=== PATIENT | female | born 1940 | race Caucasian/White ===

== ENCOUNTER 2017-04-11 08:00 | Outpatient (CLI) | payer MEDICARE | END 2017-04-11 08:01 | disposition home or self-care (01) | LOC: BICMAMMO 08:00 | PROVIDERS: ATTEND Family Medicine | DX: Z12.31 Encounter for screening mammogram for malignant neoplasm of breast (principal) | CPT/HCPCS: 77063 ==

== ENCOUNTER 2018-01-17 11:06 | Emergency (ER) | payer MEDICARE ==
[2018-01-17 11:45] LABS: #Basophils 0.1 thou/uL (0.0-0.2); #Lymphocytes 1.1 thou/uL (1.20-3.40); #Monocytes 0.8 thou/uL (0.11-0.59); #Neutrophils 4.4 thou/uL (1.40-6.50); %Eosinophils 0.7 % (0.0-10.0); %Lymphocytes 17.3 % (21.0-51.0); Hemoglobin 14.9 g/dL (12.0-16.0); Mean Corpuscular HGB CONC 33.8 g/dL (32.0-36.0); Mean Corpuscular Hemoglobin 31.7 pg (27.0-31.0); Mean Corpuscular Volume 93.6 fL (78.0-98.0); Mean Platelet Volume 7.4 fL (7.4-10.4); Platelet Count 231 thou/uL (130-400); RBC Distribution Width 11.3 % (11.5-14.5); Red Blood Cell (RBC) Count 4.69 mill/uL (4.20-5.40); White Blood Cell (WBC) Count 6.4 thou/uL (4.8-10.8)
--- NOTE | 2018-01-17 12:00 | RAD ---
CHEST 1 VIEW: HISTORY: Cough. Dyspnea. COMPARISON: 11/12/13. FINDINGS: Normal cardiac silhouette. The pulmonary vessels and hilum are normal. Costophrenic angles are calvin r. No mass. No consolidation. Lungs are hyperinflated. No pneumothorax or osseous abnormalities. IMPRESSION: No acute cardiopulmonary process. POS: [facility]
[2018-01-17 12:02] LABS: ALT (SGPT) 14 U/L (8-55); AST (SGOT) 26 U/L (5-34); Albumin 4.2 g/dL (3.4-4.8); Alkaline Phosphatase 79 U/L (40-150); Anion Gap 12 mmol/L (10-20); BUN (Urea Nitrogen) 15 mg/dL (9.8-20.1); Bilirubin, Total 0.4 mg/dL (0.2-1.2); Calc. Creatinine Clearance 0 mL/min (70-130); Calcium 9.3 mg/dL (7.8-10.44); Carbon Dioxide 26 mmol/L (23-31); Chloride 100 mmol/L (98-107); Estimated GFR-MDRD 46; Glucose 130 mg/dL (83-110); Potassium 3.7 mmol/L (3.5-5.1); Protein, Total 8.2 g/dL (6.0-8.3); Sodium 134 mmol/L (136-145)
[2018-01-17] MEDS ORDERED: methylPREDNISolone Sod Succ/PF 125 MG/2 ML VIAL ONE (13:01)
[2018-01-17] MEDS ORDERED: Albuterol Sulfate 2.5 mg/0.5 ml Neb ONE (13:01)
[2018-01-17] MEDS ORDERED: Magnesium Sulfate 2 GM/100 ML BAG ONE (13:01)
[2018-01-17] MEDS ORDERED: Ondansetron ODT 8 MG TAB ONE (13:17)
[2018-01-17] MEDS ORDERED: Dicyclomine 20 MG TAB ONE (13:17)
== END 2018-01-17 15:56 | disposition home or self-care (01) ==
LOC: ERS 11:06
DX: J44.1 Chronic obstructive pulmonary disease with (acute) exacerbation (principal); I10 Essential (primary) hypertension; F17.210 Nicotine dependence, cigarettes, uncomplicated; Z79.899 Other long term (current) drug therapy
CPT/HCPCS: 36415; 71045; 80053; 83880; 85025; 87804; 96365; 96375; J2930; J3475; J7611; J7620

== ENCOUNTER 2018-08-03 21:27 | Emergency (ER) | payer MEDICARE ==
[2018-08-03 22:02] LABS: #Basophils 0.1 thou/uL (0.0-0.2); #Eosinphils 0.2 thou/uL (0.0-0.7); #Lymphocytes 1.8 thou/uL (1.20-3.40); #Monocytes 0.8 thou/uL (0.11-0.59); #Neutrophils 11.5 thou/uL (1.40-6.50); %Basophils 0.6 % (0.0-1.0); %Eosinophils 1.3 % (0.0-10.0); %Lymphocytes 12.4 % (21.0-51.0); %Monocytes 5.3 % (0.0-10.0); %Neutrophils 80.4 % (42.0-75.0); Hemoglobin 14.5 g/dL (12.0-16.0); Mean Corpuscular HGB CONC 32.6 g/dL (32.0-36.0); Mean Corpuscular Hemoglobin 30.7 pg (27.0-31.0); Mean Corpuscular Volume 94.3 fL (78.0-98.0); Mean Platelet Volume 7.3 fL (7.4-10.4); Platelet Count 288 thou/uL (130-400); RBC Distribution Width 11.8 % (11.5-14.5); White Blood Cell (WBC) Count 14.3 thou/uL (4.8-10.8)
--- NOTE | 2018-08-03 22:02 | RAD ---
FPortable chest: HISTORY: Chest pain COMPARISON: none FINDINGS: Lung peterson are clear. Heart and mediastinum appear unremarkable. Vascularity is normal. Visualized osseous structures unremarkable. IMPRESSION: No acute finding
[2018-08-03 22:26] LABS: ALT (SGPT) 13 U/L (8-55); AST (SGOT) 19 U/L (5-34); Albumin 4.5 g/dL (3.4-4.8); Alkaline Phosphatase 99 U/L (40-150); Anion Gap 13 mmol/L (10-20); BUN (Urea Nitrogen) 14 mg/dL (9.8-20.1); Bilirubin, Total 0.4 mg/dL (0.2-1.2); CK (CPK) 205 U/L (29-168); Calc. Creatinine Clearance 0 mL/min (70-130); Calcium 9.7 mg/dL (7.8-10.44); Carbon Dioxide 27 mmol/L (23-31); Chloride 103 mmol/L (98-107); Estimated GFR-MDRD 50; Globulin 3.8 g/dL (2.4-3.5); Glucose 123 mg/dL (83-110); Potassium 3.9 mmol/L (3.5-5.1); Protein, Total 8.3 g/dL (6.0-8.3); Sodium 139 mmol/L (136-145)
[2018-08-04] MEDS ORDERED: methylPREDNISolone Sod Succ/PF 125 MG/2 ML VIAL ONE (00:46)
--- NOTE | 2018-08-04 08:50 | CT ---
PRELIMINARY REPORT/[facility]/EMERGENCY AFTER HOURS PROCEDURE: EXAM: CT Angiography Chest With Contrast EXAM DATE/TIME: 08/04/2018 2:10 AM CLINICAL HISTORY: 77 years old, female; Signs and symptoms; Dyspnea; Patient HX: 77 y/o f, with h/o copd, presents to e d C/O cough, with green sputum. PT notes associated soreness in throat, chest tightness. Denies fever , chills, n/v, vision changes, rhinorrhea, GOMEZ, myalgias, urinary symptoms TECHNIQUE: Imaging protocol: Axial computed tomographic angiography images of the chest with intravenous contras t using CT angiography protocol. 3D rendering: MIP reconstructed images were created and reviewed. COMPARISON: No relevant prior studies available. FINDINGS: Pulmonary arteries: There is no evidence of peripheral filling defects within the pulmonary arterial circulation to suggest pulmonary embolism. Aorta: There is no evidence of aortic dissection, leak, rupture, or other complications. The vasculat ure demonstrates diffuse moderate atherosclerotic calcification. Thyroid: There is indeterminate left thyroid heterogeneity/hypodense nodularity possibly from small g oiter measuring at least 1.8 cm. Lungs: Moderate centrilobular emphysematous changes are present. Pleural space: Normal. No pneumothorax. No pleural effusion. Heart: Normal. No cardiomegaly. No pericardial effusion. Lymph nodes: Unremarkable. No enlarged lymph nodes. Bones/joints: Unremarkable. No acute fracture. Soft tissues: Unremarkable. IMPRESSION: 1. There is no CT evidence of acute pulmonary embolism. 2. Moderate centrilobular emphysematous changes are present. 3. There is indeterminate left thyroid heterogeneity/hypodense nodularity possibly from small goiter measuring at least 1.8 cm. This can be further evaluated with thyroid ultrasound if clinically warran lisandro. Thank you for allowing us to participate in the care of your patient. Dictated and Authenticated by: Weston Stack MD 08/04/2018 2:47 AM Central Time ([place] & [place]) FINAL REPORT EMERGENCY AFTER HOURS CT ANGIO CHEST PERFORMED WITH IV CONTRAST ENHANCEMENT WITH 3D RECONSTRUCTIONS: Date: 08/03/18 HISTORY: Dyspnea. History of COPD. Has cough with green sputum. Chest tightness. FINDINGS: The lungs show emphysematous-type change with changes of centrilobular emphysema. No infiltrative pro cess or pulmonary nodules. No significant mediastinal or hilar adenopathy. Thoracic aorta is normal in caliber. There is fairly good pulmonary artery opacification. Smaller peripheral emboli cannot be excluded. I see no CT evidence for pulmonary embolus. Visualized liver parenchyma shows no focal findings. Gallbladder has been removed. Right and left adr enal glands are normal. Incidental note is made of a heterogeneous thyroid with what appears to be a left lobe thyroid nodule . Ultrasound would be recommended for further evaluation. IMPRESSION: 1. Emphysematous lung change. 2. No CT evidence for pulmonary embolus. 3. Left lobe thyroid nodule. Further evaluation with ultrasound would be recommended. This report is in agreement with the preliminary report issued by [facility]. POS: [facility]
== END 2018-08-04 03:41 | disposition home or self-care (01) ==
LOC: ERS 21:27
DX: J44.1 Chronic obstructive pulmonary disease with (acute) exacerbation (principal); E05.90 Thyrotoxicosis, unspecified without thyrotoxic crisis or storm; I10 Essential (primary) hypertension; F17.210 Nicotine dependence, cigarettes, uncomplicated; Z79.51 Long term (current) use of inhaled steroids; Z79.899 Other long term (current) drug therapy
CPT/HCPCS: 36415; 71045; 71275; 80053; 82550; 84484; 85025; 85379; 93005; 94640; 94760; 96374; J2930; J7620

== ENCOUNTER 2018-09-02 08:36 | Outpatient (CLI) | payer MEDICARE ==
--- NOTE | 2018-09-02 11:18 | ULT ---
THYROID ULTRASOUND: Date: 09/02/18 HISTORY: Hyperthyroidism. Parathyroidism. FINDINGS: Real-time imaging of the right and left lobes of the thyroid gland were performed. The right lobe radha sures 1.8 x 1.8 x 4.7 cm. The left lobe measures 1.9 x 2.7 x 5.8 cm. There are at least two larger le ft lobe thyroid nodules, one measuring 1.5 cm and the other approximately 2.3 cm in size. Both lesion s are solid without any significant cystic component. Isoechoic to surrounding parenchyma ill-defined margins. No evidence of any microcalcifications. IMPRESSION: Two dominant left lobe thyroid nodules, the larger of which approaches 2.5 cm in average dimension in the lower pole of the left lobe. These would correspond to TI-RADS 3 lesions. The larger nodule, whi ch is close to averaging 2.5 cm in size, the general recommendation would be fine needle aspiration o f this nodule. POS: [facility]
== END 2018-09-02 08:37 | disposition home or self-care (01) ==
LOC: BICULT 08:36
PROVIDERS: ATTEND Otolaryngology Otolaryngic Allergy
DX: E21.0 Primary hyperparathyroidism (principal); E04.1 Nontoxic single thyroid nodule; J38.7 Other diseases of larynx; E04.2 Nontoxic multinodular goiter
CPT/HCPCS: 76536

== ENCOUNTER 2018-09-19 10:57 | Outpatient (CLI) | payer MEDICARE ==
--- NOTE | 2018-09-19 11:17 | MMO ---
Bilateral MAMMO Bilat Screen [facility]. CLINICAL HISTORY: Patient is 78 years old and is seen for screening. The patient has no family history of breast cancer. The patient has no personal history of cancer. VIEWS: The views performed were: bilateral craniocaudal with tomosynthesis and bilateral mediolateral oblique with tomosynthesis. FILMS COMPARED: The present examination has been compared to prior imaging studies performed at [facility] on 04/11/2017, and at [facility] on 05/14/2014, 05/19/2014 and 02/17/2016. MAMMOGRAM FINDINGS: The breasts are almost entirely fat. There are stable benign appearing calcifications seen in both breasts. There are no suspicious masses, suspicious calcifications, or new areas of architectural distortion. IMPRESSION: THERE IS NO MAMMOGRAPHIC EVIDENCE OF MALIGNANCY. A ROUTINE FOLLOW-UP MAMMOGRAM IN 1 YEAR IS RECOMMENDED. THE RESULTS OF THIS EXAM WERE SENT TO THE PATIENT. ACR BI-RADS Category 2 - Benign finding MAMMOGRAPHY NOTE: 1. A negative mammogram report should not delay a biopsy if a dominant of clinically suspicious mass is present. 2. Approximately 10% to 15% of breast cancers are not detected by mammography. 3. Adenosis and dense breasts may obscure an underlying neoplasm.
== END 2018-09-19 10:58 | disposition home or self-care (01) ==
LOC: BICMAMMO 10:57
PROVIDERS: ATTEND Family Medicine
DX: Z12.31 Encounter for screening mammogram for malignant neoplasm of breast (principal)
CPT/HCPCS: 77063; 77067

== ENCOUNTER 2019-03-20 08:36 | Outpatient (CLI) | payer MEDICARE ==
--- NOTE | 2019-03-20 09:13 | ULT ---
THYROID ULTRASOUND: COMPARISON: 09/02/2018. HISTORY: Follow-up left thyroid lobe nodules. FINDINGS: Thyroid isthmus measures 0.35 cm. Right thyroid lobe measures 4.9 x 1.7 x 2.0 cm. Left thyroid lobe measures 5.3 x 1.9 x 3.0 cm. Left thyroid lobe: Redemonstration of 2 separate solid nodules. There is a 1.7 x 1.4 x 1.5 cm nodule in the mid left thyroid lobe. Previously, this nodule measured 1.3 x 1.5 x 1.4 cm. There is a second larger solid nodule in the lower pole left thyroid lobe measuring 2.3 x 2.3 x 2.0 cm. Previous ly, this nodule measured 2.2 x 2.7 x 2.0 cm. Both nodules are essentially stable. IMPRESSION: TIRADS calculator score: TR 4. Moderately suspicious. Fine-needle aspiration is recommended given the size of the larger of the 2 solid lesions in the lower pole left thyroid lobe. Transcribed Date/Time: 03/20/2019 9:23 AM
== END 2019-03-20 08:37 | disposition home or self-care (01) ==
LOC: BICULT 08:36
PROVIDERS: ATTEND Otolaryngology Otolaryngic Allergy
DX: E04.1 Nontoxic single thyroid nodule (principal)
CPT/HCPCS: 76536

== ENCOUNTER 2019-11-27 11:20 | Outpatient (CLI) | payer MEDICARE ==
--- NOTE | 2019-11-27 13:26 | MMO ---
Bilateral MAMMO Bilat Screen [facility]. CLINICAL HISTORY: Patient is 79 years old and is seen for screening. The patient has no family history of breast cancer. The patient has no personal history of cancer. The patient has a history of right cyst aspiration in 1964. VIEWS: The views performed were: bilateral craniocaudal with tomosynthesis and bilateral mediolateral oblique with tomosynthesis. FILMS COMPARED: The present examination has been compared to prior imaging studies performed at [facility] on 04/11/2017 and 09/19/2018, and at [facility] on 05/19/2014 and 02/17/2016. This study has been interpreted with the assistance of computer-aided detection. MAMMOGRAM FINDINGS: The breasts are almost entirely fat. Benign calcifications are noted bilaterally. There are no suspicious masses, suspicious calcifications, or new areas of architectural distortion. IMPRESSION: THERE IS NO MAMMOGRAPHIC EVIDENCE OF MALIGNANCY. A ROUTINE FOLLOW-UP MAMMOGRAM IN 1 YEAR IS RECOMMENDED. THE RESULTS OF THIS EXAM WERE SENT TO THE PATIENT. ACR BI-RADS Category 2 - Benign finding MAMMOGRAPHY NOTE: 1. A negative mammogram report should not delay a biopsy if a dominant of clinically suspicious mass is present. 2. Approximately 10% to 15% of breast cancers are not detected by mammography. 3. Adenosis and dense breasts may obscure an underlying neoplasm. Reported by: TAB ROTHMAN MD Electonically Signed: [id number]
== END 2019-11-27 11:21 | disposition home or self-care (01) ==
LOC: BICMAMMO 11:20
PROVIDERS: ATTEND Family Medicine
DX: Z12.31 Encounter for screening mammogram for malignant neoplasm of breast (principal); Z98.890 Other specified postprocedural states
CPT/HCPCS: 77063; 77067

== ENCOUNTER 2020-07-01 10:28 | Outpatient (CLI) | payer MEDICARE ==
--- NOTE | 2020-07-01 13:23 | ULT ---
Thyroid ultrasound: 07/01/2020 COMPARISON: 12/15/2019 and 09/02/2018 HISTORY: Thyroid nodule TECHNIQUE: Multiplanar grayscale sonographic imaging of the thyroid gland obtained. FINDINGS: The thyroid isthmus is mildly thickened and heterogeneous, measuring 5 mm in AP dimension. The right lobe measures 1.3 x 2.1 x 4.5 cm. The left lobe measures 1.8 x 2.5 x 5.5 cm. There is a solid heterogeneously hypoechoic nodule within the midportion of the left lobe measuring 1 .4 x 1.3 x 1.2 cm, not significantly changed when compared to prior imaging dating back to 09/02/2018. Abutting the inferior aspect of this is a second solid hypoechoic nodule which measures 2. 2 x 1.8 x 2.2 cm, also not significantly changed when compared to studies dating back to 09/02/2018. No new thyroid nodules are noted. IMPRESSION: 2 solid nodules are again noted in the left lobe of the thyroid gland as detailed above, stable when compared to studies dating back to 09/02/2018.
== END 2020-07-01 10:29 | disposition home or self-care (01) ==
LOC: BICULT 10:28
PROVIDERS: ATTEND Internal Medicine Endocrinology, Diabetes & Metabolism
DX: E05.90 Thyrotoxicosis, unspecified without thyrotoxic crisis or storm (principal); E04.2 Nontoxic multinodular goiter
CPT/HCPCS: 76536

== ENCOUNTER 2020-08-17 08:05 | Outpatient (CLI) | payer MEDICARE | END 2020-08-17 08:06 | disposition home or self-care (01) | LOC: NM 08:05 | PROVIDERS: ATTEND Internal Medicine Endocrinology, Diabetes & Metabolism | DX: E05.90 Thyrotoxicosis, unspecified without thyrotoxic crisis or storm (principal); E04.1 Nontoxic single thyroid nodule | CPT/HCPCS: 78014; A9516 ==

== ENCOUNTER 2020-09-24 11:57 | Outpatient (CLI) | payer MEDICARE | END 2020-09-24 11:58 | disposition home or self-care (01) | LOC: NM 11:57 | PROVIDERS: ATTEND Internal Medicine Endocrinology, Diabetes & Metabolism | DX: E05.90 Thyrotoxicosis, unspecified without thyrotoxic crisis or storm (principal) | CPT/HCPCS: 79005; A9517 ×2 ==

== ENCOUNTER 2020-12-24 11:53 | Outpatient (CLI) | payer MEDICARE | END 2020-12-24 11:54 | disposition home or self-care (01) | LOC: BICMAMMO 11:53 | PROVIDERS: ATTEND Family Medicine | DX: Z12.31 Encounter for screening mammogram for malignant neoplasm of breast (principal) | CPT/HCPCS: 77063; 77067 ==

== ENCOUNTER 2022-07-20 11:06 | Outpatient (CLI) | payer MEDICARE | END 2022-07-20 11:07 | disposition home or self-care (01) | LOC: BICMAMMO 11:06 | PROVIDERS: ATTEND Family Medicine | DX: Z12.31 Encounter for screening mammogram for malignant neoplasm of breast (principal); Z98.890 Other specified postprocedural states | CPT/HCPCS: 77063; 77067 ==

== ENCOUNTER 2022-10-15 21:19 | Inpatient (IN) | payer MEDICARE ==
[~2022-10-15 21:19] MED LIST: Iopamidol 370 76% 100 ML VIAL ONE
[2022-10-15] MEDS ORDERED: Atropine Sulfate 1 mg/10 ml Syringe ONE (21:20)
[2022-10-15] MEDS ORDERED: Lidocaine 1% (PF) 30 ML VIAL ONE (21:20)
[2022-10-15 21:30] LABS: #Basophils 0.1 thou/uL (0.0-0.2); #Eosinphils 0.3 thou/uL (0.0-0.7); #Monocytes 0.8 thou/uL (0.11-0.59); #Neutrophils 7.8 thou/uL (1.40-6.50); %Basophils 0.7 % (0.0-1.0); %Eosinophils 2.6 % (0.0-10.0); %Lymphocytes 16.8 % (21.0-51.0); %Monocytes 7.7 % (0.0-10.0); %Neutrophils 71.8 % (42.0-75.0); Hemoglobin 12.6 g/dL (12.0-16.0); Mean Corpuscular HGB CONC 32.6 g/dL (32.0-36.0); Mean Corpuscular Hemoglobin 30.4 pg (27.0-31.0); Mean Platelet Volume 9.4 fL (7.4-10.4); Platelet Count 235 10x3/uL (130-400); RBC Distribution Width 13.1 % (11.5-14.5); Red Blood Cell (RBC) Count 4.15 mill/uL (4.20-5.40); White Blood Cell (WBC) Count 10.8 10x3/uL (4.8-10.8)
[2022-10-15 21:44] LABS: PTT 25.3 sec (22.9-36.1); Prothrombin Time 13.3 sec (12.0-14.7)
[2022-10-15 21:54] LABS: ALT (SGPT) 9 U/L (8-55); AST (SGOT) 20 U/L (5-34); Albumin 3.4 g/dL (3.4-4.8); Alkaline Phosphatase 78 U/L (40-110); Anion Gap 11 mmol/L (10-20); BUN (Urea Nitrogen) 13 mg/dL (9.8-20.1); Bilirubin, Total 0.4 mg/dL (0.2-1.2); Calc. Creatinine Clearance 0 mL/min (70-130); Calcium 8.8 mg/dL (7.8-10.44); Carbon Dioxide 26 mmol/L (23-31); Chloride 104 mmol/L (98-107); Estimated GFR 52; Globulin 2.9 g/dL (2.4-3.5); Glucose 164 mg/dL (83-110); Potassium 3.6 mmol/L (3.5-5.1); Protein, Total 6.3 g/dL (5.8-8.1); Sodium 137 mmol/L (136-145)
[2022-10-15] MEDS ORDERED: fentaNYL 50 mcg/mL 1 mL Vial ONE (21:55)
[2022-10-15] MEDS ORDERED: Midazolam HCl 2 mg/2 ml Vial ONE (21:55)
[2022-10-15] MEDS ORDERED: Nitroglycerin 50 MG/250 ML BOT 250 ML ONE (22:11)
[2022-10-15] MEDS ORDERED: Heparin 10,000 UNITS/ 10 ML VIAL ONE (22:11)
[2022-10-15] MEDS ORDERED: Clopidogrel Bisulfate 300 MG TAB ONE (22:15)
[2022-10-15] MEDS ORDERED: Nitroglycerin 0.4 MG TAB (25 Tab Bottle) SL PRN (22:54)
[2022-10-15] MEDS ORDERED: Sodium Chloride 0.9% 1,000 ML IV SCH (23:00)
[2022-10-15 23:20] VITALS: BMI 21.0
[2022-10-16] MEDS: Ipratropium/Albuterol 3 ML NEB NEB SCH ×4 (00:49→18:37)
[2022-10-16 03:51] LABS: #Eosinphils 0.1 thou/uL (0.0-0.7); #Monocytes 0.6 thou/uL (0.11-0.59); %Basophils 0.4 % (0.0-1.0); %Eosinophils 0.5 % (0.0-10.0); %Lymphocytes 11.6 % (21.0-51.0); %Neutrophils 81.3 % (42.0-75.0); Hemoglobin 12.6 g/dL (12.0-16.0); Mean Corpuscular HGB CONC 33.7 g/dL (32.0-36.0); Mean Corpuscular Hemoglobin 30.7 pg (27.0-31.0); Mean Platelet Volume 9.9 fL (7.4-10.4); Platelet Count 238 10x3/uL (130-400); RBC Distribution Width 13.2 % (11.5-14.5); Red Blood Cell (RBC) Count 4.11 mill/uL (4.20-5.40); White Blood Cell (WBC) Count 9.9 10x3/uL (4.8-10.8)
[2022-10-16 04:01] LABS: Hemoglobin A1c 5.4 % (4.0-6.0)
[2022-10-16 04:15] LABS: ALT (SGPT) 10 U/L (8-55); AST (SGOT) 24 U/L (5-34); Albumin 3.5 g/dL (3.4-4.8); Alkaline Phosphatase 77 U/L (40-110); Anion Gap 10 mmol/L (10-20); BUN (Urea Nitrogen) 10 mg/dL (9.8-20.1); Bilirubin, Total 0.4 mg/dL (0.2-1.2); Calc. Creatinine Clearance 44 mL/min (70-130); Calcium 8.6 mg/dL (7.8-10.44); Carbon Dioxide 24 mmol/L (23-31); Cardiac Risk 2.9 (Less than 4.5); Chloride 107 mmol/L (98-107); Cholesterol 156 mg/dl (< 200 Desired); Estimated GFR 73; Globulin 3.1 g/dL (2.4-3.5); Glucose 119 mg/dL (83-110); HDL Cholesterol 53 mg/dL (>60 Neg Risk); LDL Cholesterol, Calculated 89 mg/dL; Potassium 3.4 mmol/L (3.5-5.1); Protein, Total 6.6 g/dL (5.8-8.1); Sodium 138 mmol/L (136-145); Triglycerides 72 mg/dL (Less than 150)
[2022-10-16 04:22] LABS: Troponin I 2.536 ng/mL (< 0.028)
[2022-10-16 04:32] LABS: Free T4 (Free Thyroxine) 0.88 ng/dL (0.70-1.48); Thyroid Stimulating Hormone 2.9483 uIU/mL (0.35-4.94)
[2022-10-16] MEDS: Morphine 4 MG/ML VIAL SLOW IVP PRN (05:12)
[2022-10-16 07:58] LABS: Critical Call Chem Troponin I RESULT DECREASING; Troponin I 2.353 ng/mL (< 0.028)
[2022-10-16] MEDS ORDERED: Carvedilol 3.125 MG TAB PO SCH (08:00)
[2022-10-16] MEDS: Clopidogrel Bisulfate 75 MG TAB PO SCH (08:32)
[2022-10-16] MEDS: Aspirin Chewable 81 MG TAB PO SCH (08:32)
[2022-10-16] MEDS: Methimazole 5 MG TAB PO SCH ×2 (08:48→10:13)
[2022-10-16] MEDS ORDERED: Calcium Carbonate 500 MG ChewTAB PO PRN (10:27)
[2022-10-16 11:39] LABS: Troponin I 2.013 ng/mL (< 0.028)
[2022-10-16] MEDS: Carvedilol 6.25 MG TAB PO SCH (17:00)
[2022-10-16] MEDS: Mometasone 200 MCG/Formoterol 5 MCG 120 PUFF INHALER INH SCH (18:39)
[2022-10-16] MEDS: Morphine 2 MG/ML VIAL SLOW IVP PRN (18:52)
[2022-10-16] MEDS ORDERED: Atorvastatin Calcium 40 MG TAB PO SCH (21:00)
[2022-10-17] MEDS: Ipratropium/Albuterol 3 ML NEB NEB SCH ×4 (00:32→13:27)
[2022-10-17] MEDS: Morphine 2 MG/ML VIAL SLOW IVP PRN (02:05)
[2022-10-17 04:28] LABS: Anion Gap 12 mmol/L (10-20); BUN (Urea Nitrogen) 12 mg/dL (9.8-20.1); Calc. Creatinine Clearance 43 mL/min (70-130); Calcium 9.4 mg/dL (7.8-10.44); Carbon Dioxide 26 mmol/L (23-31); Chloride 104 mmol/L (98-107); Estimated GFR 71; Glucose 100 mg/dL (83-110); Magnesium 2.2 mg/dL (1.6-2.6); Potassium 3.7 mmol/L (3.5-5.1); Sodium 138 mmol/L (136-145)
[2022-10-17] MEDS: Mometasone 200 MCG/Formoterol 5 MCG 120 PUFF INHALER INH SCH (07:26)
[2022-10-17] MEDS: Clopidogrel Bisulfate 75 MG TAB PO SCH (08:01)
[2022-10-17] MEDS: Aspirin Chewable 81 MG TAB PO SCH (08:01)
[2022-10-17] MEDS: Carvedilol 6.25 MG TAB PO SCH (08:01)
[2022-10-17] MEDS: Morphine 4 MG/ML VIAL SLOW IVP PRN (10:39)
[2022-10-17] MEDS ORDERED: Polyethylene Glycol 3350 17 GM Packet PO PRN (13:23)
[2022-10-17 13:29] VITALS: TEMP 98.2
[2022-10-17 14:43] VITALS: BP 165/89
== END 2022-10-17 17:25 | disposition home or self-care (01) | DRG 247 ==
LOC: ERS 21:19 → CCL 21:47 → CCU 22:59
PROVIDERS: ADMIT Internal Medicine Cardiovascular Disease; ATTEND Internal Medicine
PROC: 027034Z Dilation of Coronary Artery, One Artery with Drug-eluting Intraluminal Device, Percutaneous Approach (ICD-10-PCS; principal; 2022-10-15)
PROC: 4A023N7 Measurement of Cardiac Sampling and Pressure, Left Heart, Percutaneous Approach (ICD-10-PCS; 2022-10-15)
PROC: B2151ZZ Fluoroscopy of Left Heart using Low Osmolar Contrast (ICD-10-PCS; 2022-10-15)
PROC: B2111ZZ Fluoroscopy of Multiple Coronary Arteries using Low Osmolar Contrast (ICD-10-PCS; 2022-10-15)
DX: I21.19 ST elevation (STEMI) myocardial infarction involving other coronary artery of inferior wall (principal); I44.2 Atrioventricular block, complete; I25.10 Atherosclerotic heart disease of native coronary artery without angina pectoris; I10 Essential (primary) hypertension; E78.00 Pure hypercholesterolemia, unspecified; J44.9 Chronic obstructive pulmonary disease, unspecified; E05.90 Thyrotoxicosis, unspecified without thyrotoxic crisis or storm; Z87.891 Personal history of nicotine dependence; Z88.0 Allergy status to penicillin; Z88.8 Allergy status to other drugs, medicaments and biological substances; Z79.899 Other long term (current) drug therapy
CPT/HCPCS: 36415; 36416; 71045; 80048; 80053; 80061; 83036; 83735; 84439; 84443; 84481; 84484; 85025; 85347; 85610; 85730; 92941; 93005; 93010; 93458; 93798; 94640; 99152; 99153; C1769; C9606; J0461; J1644; J2001; J2250; J2270; J2272; J3010; J7050; J7620; Q9967

== ENCOUNTER 2023-05-19 06:03 | Inpatient (IN) | payer MEDICARE ==
[2023-05-19 07:22] LABS: Bacteria/HPF None Seen HPF (None Seen); Bilirubin Negative (Negative); Blood, Urine 1+ (Negative); CAUTI Indications for Culture Dysuria,urgency,freq; Clarity Turbid (Clear); Glucose, Urine (Dipstick) Normal (Negative); Ketone, Urine Negative (Negative); Leukocyte Negative Leu/uL (Negative); Nitrite Negative (Negative); Protein, Urine (Dipstick) 10 mg/dL (Neg-Trace); RBC/HPF 0-3 HPF (0-3); Specific Gravity, Urine 1.011 (1.002-1.036); Squamous Epithelial None Seen HPF (0-3); Urobilinogen Normal mg/dL (Less than 2)
[2023-05-19 07:23] LABS: Urine Culture Reflex No No
[2023-05-19 07:39] LABS: Amphetamine Not Detected (NotDetected); Barbiturates Screen Not Detected (NotDetected); Benzodiazepine Screen Not Detected (NotDetected); Cocaine Metabolite Screen Not Detected (NotDetected); Methadone Not Detected (NotDetected); Methamphetamine Not Detected (NotDetected); Opiate Screen Not Detected (NotDetected); Oxycodone Screen Not Detected (NotDetected); Phencyclidine (PCP) Not Detected (NotDetected); THC/Cannabinoid Screen Not Detected (NotDetected); Tricyclic Screen Not Detected (NotDetected)
[2023-05-19 07:44] LABS: Actual Bicarbonate (HCO3v) 22.1 mEq/L (22-28); Base Excess -3.8 mEq/L (-2.0 to +3.0); Calcium, Ionized (venous) 1.06 mmol/L (1.16-1.32); Chloride (VBG) 103 mmol/L (98-106); Hematocrit-VBG 45 % (36.0-47.0); Hemoglobin (Hb) 15.3 g/dL (11.7-16.1); Potassium (VBG) 4.23 mmol/L (3.70-5.30); Sodium 139 mmol/L (133-146); pH (venous) 7.328 (7.32-7.43)
[2023-05-19 07:46] LABS: #Monocytes 0.7 thou/uL (0.11-0.59); #Neutrophils 16.3 thou/uL (1.40-6.50); %Basophils 0.2 % (0.0-1.0); %Lymphocytes 1.5 % (21.0-51.0); %Monocytes 4.1 % (0.0-10.0); %Neutrophils 93.8 % (42.0-75.0); Hematocrit 44.2 % (36.0-47.0); Hemoglobin 14.5 g/dL (12.0-16.0); Mean Corpuscular HGB CONC 32.8 g/dL (32.0-36.0); Mean Corpuscular Volume 97.6 fl (78.0-98.0); Mean Platelet Volume 10.2 fL (7.4-10.4); Platelet Count 206 10x3/uL (130-400); RBC Distribution Width 12.7 % (11.5-14.5); Red Blood Cell (RBC) Count 4.53 mill/uL (4.20-5.40); White Blood Cell (WBC) Count 17.3 10x3/uL (4.8-10.8)
[2023-05-19 08:08] LABS: ALT (SGPT) 17 U/L (8-55); AST (SGOT) 32 U/L (5-34); Albumin 3.9 g/dL (3.4-4.8); Alkaline Phosphatase 75 U/L (40-110); Anion Gap 15 mmol/L (10-20); BUN (Urea Nitrogen) 11 mg/dL (9.8-20.1); Bilirubin, Total 0.8 mg/dL (0.2-1.2); Calc. Creatinine Clearance 0 mL/min (70-130); Calcium 8.5 mg/dL (7.8-10.44); Carbon Dioxide 21 mmol/L (23-31); Chloride 105 mmol/L (98-107); Estimated GFR 73; Globulin 3.3 g/dL (2.4-3.5); Glucose 124 mg/dL (83-110); Potassium 4.1 mmol/L (3.5-5.1); Protein, Total 7.2 g/dL (5.8-8.1); Sodium 137 mmol/L (136-145)
[2023-05-19 08:10] LABS: Acetaminophen Less than 10 mcg/mL (10.0-30.0); Alcohol Less than 10.0 mg/dL (Less than 10); Lipase 26 U/L (8-78); Magnesium 1.7 mg/dL (1.6-2.6); Salicylate Less than 8.0 mg/dL (15.0-30.0)
[2023-05-19 08:14] LABS: Troponin I 0.028 ng/mL (< 0.028)
[2023-05-19] MEDS ORDERED: Magnesium 2 GM/50 ML BAG (IN WATER) ONE (08:24)
[2023-05-19] MEDS ORDERED: cefTRIAXone (ROCEPHIN) 1 GM VIAL ONE (08:24)
[2023-05-19] MEDS ORDERED: Sodium Chloride 0.9% 100 ML ONE (08:24)
[2023-05-19] MEDS ORDERED: methylPREDNISolone Sod Succ/PF 125 MG/2 ML VIAL ONE (08:24)
[2023-05-19] MEDS ORDERED: Azithromycin 500 MG VIAL ONE (08:51)
[2023-05-19] MEDS ORDERED: fentaNYL 50 mcg/mL 1 mL Vial ONE ×2 (09:03→12:02)
[2023-05-19 10:50] LABS: SARS-CoV-2 NAA Rapid Test Not Detected (NotDetected)
[2023-05-19 10:54] LABS: Lactic Acid 1.9 mmol/L (0.5-2.2)
[2023-05-19] MEDS ORDERED: Oseltamivir 75 MG CAP PO SCH (11:30)
[2023-05-19 12:38] LABS: Troponin I 0.017 ng/mL (< 0.028)
[2023-05-19] MEDS ORDERED: Iopamidol 370 76% 100 ML VIAL ONE (12:51)
[2023-05-19] MEDS ORDERED: Lorazepam 2 MG/ML VIAL SLOW IVP PRN (14:09)
[2023-05-19] MEDS ORDERED: Acetaminophen 325 MG TAB PO PRN (14:10)
[2023-05-19 15:41] LABS: Troponin I 0.034 ng/mL (< 0.028)
[2023-05-19] MEDS ORDERED: Ipratropium/Albuterol 3 ML NEB NEB PRN (17:00)
[2023-05-19] MEDS ORDERED: Non-Formulary Item 1 EACH (Budesonide-Formoterol [Symbicort 160-4.5] 160 MG/4.5 MG Aer) IN SCH (21:00)
[2023-05-19] MEDS: methylPREDNISolone Sod Succ 40 MG VIAL IVP SCH (22:30)
[2023-05-19] MEDS: Famotidine/PF 20 mg/2ml Vial SLOW IVP SCH (22:30)
[2023-05-19] MEDS: Oseltamivir 75 MG CAP PO SCH (22:30)
[2023-05-19] MEDS: Albuterol 2.5 MG (3 mL) NEB NEB PRN (22:45)
[2023-05-20 03:08] LABS: Legionella Urinary Ag Negative (Negative); Strep pneumo Urine Ag NEGATIVE (NEGATIVE)
[2023-05-20] MEDS: methylPREDNISolone Sod Succ 40 MG VIAL IVP SCH ×4 (04:24→21:26)
[2023-05-20] MEDS: Albuterol 2.5 MG (3 mL) NEB NEB PRN (04:35)
[2023-05-20 06:18] LABS: Anion Gap 17 mmol/L (10-20); BUN (Urea Nitrogen) 18 mg/dL (9.8-20.1); Calc. Creatinine Clearance 40 mL/min (70-130); Calcium 9.2 mg/dL (7.8-10.44); Carbon Dioxide 20 mmol/L (23-31); Chloride 106 mmol/L (98-107); Estimated GFR 82; Glucose 97 mg/dL (83-110); Potassium 3.9 mmol/L (3.5-5.1); Sodium 139 mmol/L (136-145)
[2023-05-20 06:32] LABS: Hematocrit 43.2 % (36.0-47.0); Hemoglobin 14.3 g/dL (12.0-16.0); Manual Diff?? YES; Mean Corpuscular HGB CONC 33.1 g/dL (32.0-36.0); Mean Corpuscular Hemoglobin 31.7 pg (27.0-31.0); Mean Corpuscular Volume 95.8 fl (78.0-98.0); Mean Platelet Volume 11.4 fL (7.4-10.4); Platelet Count 179 10x3/uL (130-400); RBC Distribution Width 13.1 % (11.5-14.5); Red Blood Cell (RBC) Count 4.51 mill/uL (4.20-5.40); White Blood Cell (WBC) Count 23.9 10x3/uL (4.8-10.8)
[2023-05-20 06:33] LABS: Delete Auto Diff?? YES
[2023-05-20] MEDS: Ipratropium/Albuterol 3 ML NEB NEB SCH ×4 (07:28→18:13)
[2023-05-20] MEDS: Mometasone 200 MCG/Formoterol 5 MCG 120 PUFF INHALER INH SCH ×2 (07:28→18:16)
[2023-05-20 07:52] LABS: Band 43 % (5-11); Burr Cells SLIGHT = 2-5 cells HPF (0-1); CellaVision Operator ID LAB.CMB; Large Platelets 2.5 % (0-5); Lymphocytes 2 % (21-51); Metamyelocyte 1 % (0-0); Monocytes 4 % (0-10); Neutrophil 50 % (42-75); Platelet Adequacy Comment Platelets Normal; Total Cell Count 118
[2023-05-20] MEDS ORDERED: predniSONE 20 MG TAB PO SCH (08:00)
[2023-05-20] MEDS ORDERED: Amlodipine 5 MG TAB PO SCH (09:00)
[2023-05-20] MEDS: Azithromycin 500 MG in Sodium Chloride 0.9% 250 ML 250 ML IVPB SCH (09:56)
[2023-05-20] MEDS: Oseltamivir 75 MG CAP PO SCH (09:56)
[2023-05-20] MEDS: cefTRIAXone\\ROCEPHIN 1 GM in Sodium Chloride 0.9% 100 ML IVPB SCH (09:56)
[2023-05-20] MEDS: Famotidine/PF 20 mg/2ml Vial SLOW IVP SCH ×2 (09:57→21:26)
[2023-05-20] MEDS: Aspirin 81 mg Enteric Coated Tablet PO SCH (09:57)
[2023-05-20] MEDS ORDERED: busPIRone HCl 10 MG TAB PO PRN (14:45)
[2023-05-20] MEDS ORDERED: Clindamycin/D5W 300 MG/50 ML BAG IVPB SCH (17:15)
[2023-05-20] MEDS: Clindamycin/D5W 300 MG in Premix 1 BAG IVPB SCH (17:49)
[2023-05-20] MEDS: Atorvastatin Calcium 40 MG TAB PO SCH (21:25)
[2023-05-20] MEDS: Oseltamivir 6 MG/ML ORAL SUSP PO SCH (21:35)
[2023-05-20] MEDS: Ondansetron ODT 4 MG TAB PO PRN (23:30)
[2023-05-21] MEDS ORDERED: diphenhydrAMINE 50 MG/ML VIAL IVP SCH (01:30)
[2023-05-21] MEDS: methylPREDNISolone Sod Succ 40 MG VIAL IVP SCH ×3 (02:30→20:23)
[2023-05-21] MEDS: Clindamycin/D5W 300 MG in Premix 1 BAG IVPB SCH ×3 (02:30→18:04)
[2023-05-21] MEDS ORDERED: Metoclopramide HCl 10 MG (2 mL) VIAL IVP SCH (05:30)
[2023-05-21 07:38] LABS: Hematocrit 44.9 % (36.0-47.0); Hemoglobin 14.8 g/dL (12.0-16.0); Manual Diff?? YES; Mean Corpuscular Hemoglobin 31.2 pg (27.0-31.0); Mean Corpuscular Volume 94.5 fl (78.0-98.0); Mean Platelet Volume 10.7 fL (7.4-10.4); Platelet Count 219 10x3/uL (130-400); RBC Distribution Width 13.2 % (11.5-14.5); Red Blood Cell (RBC) Count 4.75 mill/uL (4.20-5.40); White Blood Cell (WBC) Count 21.8 10x3/uL (4.8-10.8)
[2023-05-21] MEDS: Mometasone 200 MCG/Formoterol 5 MCG 120 PUFF INHALER INH SCH ×2 (07:50→19:13)
[2023-05-21] MEDS: Ipratropium/Albuterol 3 ML NEB NEB SCH ×3 (07:52→19:12)
[2023-05-21 07:59] LABS: Anion Gap 19 mmol/L (10-20); BUN (Urea Nitrogen) 23 mg/dL (9.8-20.1); Calc. Creatinine Clearance 37 mL/min (70-130); Calcium 9.4 mg/dL (7.8-10.44); Carbon Dioxide 20 mmol/L (23-31); Chloride 105 mmol/L (98-107); Estimated GFR 74; Glucose 130 mg/dL (83-110); Potassium 3.2 mmol/L (3.5-5.1); Sodium 141 mmol/L (136-145)
[2023-05-21 08:11] LABS: Delete Auto Diff?? YES
[2023-05-21] MEDS ORDERED: Bismuth SubsALICYLATE 30 ML(17.5 mg/mL) Susp PO PRN (08:27)
[2023-05-21 08:43] LABS: Band 27 % (5-11); Burr Cells SLIGHT = 2-5 cells HPF (0-1); CellaVision Operator ID LAB.KW3; Lymphocytes 3 % (21-51); Neutrophil 70 % (42-75); Platelet Adequacy Comment Platelets Normal; Total Cell Count 100
[2023-05-21] MEDS ORDERED: Electrolyte Replacement Protocol 1 EACH FS SCH (09:00)
[2023-05-21] MEDS ORDERED: Electrolyte Replacement Protocol FS PRN (09:00)
[2023-05-21] MEDS: Azithromycin 500 MG in Sodium Chloride 0.9% 250 ML 250 ML IVPB SCH (11:06)
[2023-05-21] MEDS: Potassium Chloride 20 MEQ in Premix 1 BAG IVPB SCH ×2 (11:06→13:00)
[2023-05-21] MEDS: Floranex 1 GM Packet PO SCH (11:07)
[2023-05-21] MEDS: Famotidine/PF 20 mg/2ml Vial SLOW IVP SCH ×2 (11:07→20:45)
[2023-05-21] MEDS: cefTRIAXone\\ROCEPHIN 1 GM in Sodium Chloride 0.9% 100 ML IVPB SCH (11:07)
[2023-05-21] MEDS: Amlodipine 10 MG TAB PO SCH (11:07)
[2023-05-21] MEDS: Aspirin 81 mg Enteric Coated Tablet PO SCH (11:08)
[2023-05-21] MEDS: NS 0.9% w/ 20 MEQ KCL 1,000 ML/1,000 ML BAG IV SCH (11:08)
[2023-05-21] MEDS: Senokot S 8.6-50 MG TAB PO SCH ×2 (11:08→23:47)
[2023-05-21] MEDS: Oseltamivir 6 MG/ML ORAL SUSP PO SCH ×2 (11:08→23:46)
[2023-05-21 18:21] LABS: Potassium 3.8 mmol/L (3.5-5.1)
[2023-05-21] MEDS: Enoxaparin 30 MG (0.3 mL) SYRINGE SC SCH (20:23)
[2023-05-21] MEDS: Atorvastatin Calcium 40 MG TAB PO SCH (23:45)
[2023-05-22] MEDS: Clindamycin/D5W 300 MG in Premix 1 BAG IVPB SCH (02:30)
[2023-05-22] MEDS: NS 0.9% w/ 20 MEQ KCL 1,000 ML/1,000 ML BAG IV SCH ×2 (04:55→12:44)
[2023-05-22] MEDS: Labetalol HCl 100 MG/20 ML VIAL SLOW IVP PRN ×2 (05:04→15:08)
[2023-05-22] MEDS: Ondansetron ODT 4 MG TAB PO PRN (05:15)
[2023-05-22] MEDS: Mometasone 200 MCG/Formoterol 5 MCG 120 PUFF INHALER INH SCH ×2 (07:06→19:43)
[2023-05-22] MEDS: Ipratropium/Albuterol 3 ML NEB NEB SCH ×3 (07:10→19:42)
[2023-05-22 09:12] LABS: Anion Gap 16 mmol/L (10-20); BUN (Urea Nitrogen) 20 mg/dL (9.8-20.1); Calc. Creatinine Clearance 44 mL/min (70-130); Calcium 9.4 mg/dL (7.8-10.44); Carbon Dioxide 22 mmol/L (23-31); Chloride 111 mmol/L (98-107); Estimated GFR 88; Glucose 140 mg/dL (83-110); Potassium 4.4 mmol/L (3.5-5.1); Sodium 145 mmol/L (136-145)
[2023-05-22] MEDS: cefTRIAXone\\ROCEPHIN 1 GM in Sodium Chloride 0.9% 100 ML IVPB SCH (09:29)
[2023-05-22] MEDS: methylPREDNISolone Sod Succ 40 MG VIAL IVP SCH ×2 (09:29→20:34)
[2023-05-22] MEDS: Floranex 1 GM Packet PO SCH (09:39)
[2023-05-22] MEDS: Oseltamivir 6 MG/ML ORAL SUSP PO SCH ×2 (09:42→20:52)
[2023-05-22] MEDS: Senokot S 8.6-50 MG TAB PO SCH ×3 (09:43→20:52)
[2023-05-22 10:03] LABS: #Monocytes 1.2 thou/uL (0.11-0.59); #Neutrophils 23.1 thou/uL (1.40-6.50); %Basophils 0.2 % (0.0-1.0); %Lymphocytes 1.4 % (21.0-51.0); %Monocytes 4.9 % (0.0-10.0); %Neutrophils 92.9 % (42.0-75.0); Hemoglobin 15.5 g/dL (12.0-16.0); Mean Corpuscular HGB CONC 32.3 g/dL (32.0-36.0); Mean Corpuscular Hemoglobin 31.3 pg (27.0-31.0); Mean Corpuscular Volume 96.8 fl (78.0-98.0); Mean Platelet Volume 11.7 fL (7.4-10.4); Platelet Count 212 10x3/uL (130-400); RBC Distribution Width 13.4 % (11.5-14.5); Red Blood Cell (RBC) Count 4.96 mill/uL (4.20-5.40); White Blood Cell (WBC) Count 24.9 10x3/uL (4.8-10.8)
[2023-05-22] MEDS: Amlodipine 10 MG TAB PO SCH (11:30)
[2023-05-22] MEDS: Aspirin 81 mg Enteric Coated Tablet PO SCH (11:31)
[2023-05-22] MEDS: Enoxaparin 30 MG (0.3 mL) SYRINGE SC SCH (20:33)
[2023-05-22] MEDS: Famotidine/PF 20 mg/2ml Vial SLOW IVP SCH (20:36)
[2023-05-22] MEDS: Atorvastatin Calcium 40 MG TAB PO SCH ×2 (20:36→20:51)
[2023-05-23 05:58] LABS: Hematocrit 51.2 % (36.0-47.0); Hemoglobin 16.2 g/dL (12.0-16.0); Manual Diff?? YES; Mean Corpuscular HGB CONC 31.6 g/dL (32.0-36.0); Mean Corpuscular Hemoglobin 31.3 pg (27.0-31.0); Mean Corpuscular Volume 98.8 fl (78.0-98.0); Mean Platelet Volume 11.5 fL (7.4-10.4); Platelet Count 209 10x3/uL (130-400); RBC Distribution Width 13.3 % (11.5-14.5); Red Blood Cell (RBC) Count 5.18 mill/uL (4.20-5.40); White Blood Cell (WBC) Count 29.2 10x3/uL (4.8-10.8)
[2023-05-23 06:05] LABS: Delete Auto Diff?? YES
[2023-05-23 06:29] LABS: Anion Gap 15 mmol/L (10-20); BUN (Urea Nitrogen) 21 mg/dL (9.8-20.1); Calc. Creatinine Clearance 50 mL/min (70-130); Calcium 9.2 mg/dL (7.8-10.44); Carbon Dioxide 24 mmol/L (23-31); Chloride 114 mmol/L (98-107); Estimated GFR 91; Glucose 178 mg/dL (83-110); Potassium 4.3 mmol/L (3.5-5.1); Sodium 149 mmol/L (136-145)
[2023-05-23 06:31] LABS: Band 1 % (5-11); CellaVision Operator ID lab.abc; Lymphocytes 1 % (21-51); Monocytes 3 % (0-10); Neutrophil 95 % (42-75); Platelet Adequacy Comment Platelets Normal; RBC Morphology Within Normal Limits; Smudge Cells 5.9 %; Total Cell Count 101
[2023-05-23] MEDS: Ipratropium/Albuterol 3 ML NEB NEB SCH ×4 (07:41→21:18)
[2023-05-23] MEDS: Mometasone 200 MCG/Formoterol 5 MCG 120 PUFF INHALER INH SCH ×2 (07:43→21:18)
[2023-05-23] MEDS: cefTRIAXone\\ROCEPHIN 1 GM in Sodium Chloride 0.9% 100 ML IVPB SCH (09:47)
[2023-05-23] MEDS: Senokot S 8.6-50 MG TAB PO SCH ×2 (09:58→20:46)
[2023-05-23] MEDS: Oseltamivir 6 MG/ML ORAL SUSP PO SCH ×2 (09:58→20:46)
[2023-05-23] MEDS: Aspirin 81 mg Enteric Coated Tablet PO SCH (09:58)
[2023-05-23] MEDS: Floranex 1 GM Packet PO SCH (09:58)
[2023-05-23] MEDS: Amlodipine 10 MG TAB PO SCH (09:58)
[2023-05-23] MEDS: Sodium Chloride 0.45% 1,000 ML IV SCH ×2 (10:05→20:46)
[2023-05-23] MEDS: NS 0.9% w/ 20 MEQ KCL 1,000 ML/1,000 ML BAG IV SCH (10:17)
[2023-05-23] MEDS ORDERED: Meropenem 1 GM in Sodium Chloride 0.9% 100 ML IVPB SCH (18:30)
[2023-05-23] MEDS: Famotidine/PF 20 mg/2ml Vial SLOW IVP SCH (20:45)
[2023-05-23] MEDS: Enoxaparin 30 MG (0.3 mL) SYRINGE SC SCH (20:45)
[2023-05-23] MEDS: Atorvastatin Calcium 40 MG TAB PO SCH (20:46)
[2023-05-24 02:48] LABS: #Monocytes 1.2 thou/uL (0.11-0.59); #Neutrophils 20.1 thou/uL (1.40-6.50); %Basophils 0.2 % (0.0-1.0); %Lymphocytes 1.9 % (21.0-51.0); %Monocytes 5.3 % (0.0-10.0); Hematocrit 48.3 % (36.0-47.0); Hemoglobin 15.4 g/dL (12.0-16.0); Mean Corpuscular HGB CONC 31.9 g/dL (32.0-36.0); Mean Corpuscular Hemoglobin 31.4 pg (27.0-31.0); Mean Corpuscular Volume 98.4 fl (78.0-98.0); Mean Platelet Volume 11.4 fL (7.4-10.4); Platelet Count 153 10x3/uL (130-400); RBC Distribution Width 13.2 % (11.5-14.5); Red Blood Cell (RBC) Count 4.91 mill/uL (4.20-5.40); White Blood Cell (WBC) Count 21.9 10x3/uL (4.8-10.8)
[2023-05-24 03:15] LABS: Anion Gap 16 mmol/L (10-20); BUN (Urea Nitrogen) 20 mg/dL (9.8-20.1); Calc. Creatinine Clearance 60 mL/min (70-130); Calcium 8.8 mg/dL (7.8-10.44); Carbon Dioxide 28 mmol/L (23-31); Chloride 110 mmol/L (98-107); Estimated GFR 93; Glucose 126 mg/dL (83-110); Potassium 3.6 mmol/L (3.5-5.1); Sodium 150 mmol/L (136-145)
[2023-05-24] MEDS: Meropenem 1 GM in Sodium Chloride 0.9% 100 ML IVPB SCH ×3 (03:45→21:41)
[2023-05-24] MEDS: Sodium Chloride 0.45% 1,000 ML IV SCH ×2 (06:24→18:02)
[2023-05-24 07:18] LABS: Anion Gap 11 mmol/L (10-20); BUN (Urea Nitrogen) 21 mg/dL (9.8-20.1); Calc. Creatinine Clearance 52 mL/min (70-130); Calcium 8.7 mg/dL (7.8-10.44); Carbon Dioxide 34 mmol/L (23-31); Chloride 109 mmol/L (98-107); Estimated GFR 90; Glucose 102 mg/dL (83-110); Potassium 3.4 mmol/L (3.5-5.1)
[2023-05-24] MEDS: Ipratropium/Albuterol 3 ML NEB NEB SCH ×3 (07:37→19:05)
[2023-05-24 07:41] LABS: Critical Call Chemistry NUR.BJM AT 0741; Sodium 151 mmol/L (136-145)
[2023-05-24] MEDS: Mometasone 200 MCG/Formoterol 5 MCG 120 PUFF INHALER INH SCH ×2 (07:42→19:20)
[2023-05-24] MEDS ORDERED: Furosemide 20 MG (2 mL) VIAL SLOW IVP SCH (08:30)
[2023-05-24] MEDS: Amlodipine 10 MG TAB PO SCH (09:11)
[2023-05-24] MEDS: Floranex 1 GM Packet PO SCH (09:11)
[2023-05-24] MEDS: Senokot S 8.6-50 MG TAB PO SCH ×2 (09:12→21:45)
[2023-05-24] MEDS: Aspirin 81 mg Enteric Coated Tablet PO SCH (09:12)
[2023-05-24] MEDS: Oseltamivir 6 MG/ML ORAL SUSP PO SCH ×2 (09:12→21:45)
[2023-05-24 09:48] VITALS: BMI 19.1
[2023-05-24] MEDS: Potassium Chloride 20 MEQ in Premix 1 BAG IVPB SCH ×2 (14:43→17:56)
[2023-05-24] MEDS: Famotidine/PF 20 mg/2ml Vial SLOW IVP SCH (21:42)
[2023-05-24] MEDS: Enoxaparin 30 MG (0.3 mL) SYRINGE SC SCH (21:42)
[2023-05-24] MEDS: Atorvastatin Calcium 40 MG TAB PO SCH (21:45)
[2023-05-24] MEDS: Labetalol HCl 100 MG/20 ML VIAL SLOW IVP PRN (21:54)
[2023-05-25] MEDS: Sodium Chloride 0.45% 1,000 ML IV SCH (02:21)
[2023-05-25] MEDS: Meropenem 1 GM in Sodium Chloride 0.9% 100 ML IVPB SCH ×3 (03:55→19:46)
[2023-05-25 05:08] LABS: #Monocytes 0.8 thou/uL (0.11-0.59); #Neutrophils 11.7 thou/uL (1.40-6.50); %Basophils 0.2 % (0.0-1.0); %Lymphocytes 4.5 % (21.0-51.0); %Monocytes 6.1 % (0.0-10.0); %Neutrophils 88.3 % (42.0-75.0); Hematocrit 49.9 % (36.0-47.0); Hemoglobin 15.5 g/dL (12.0-16.0); Mean Corpuscular HGB CONC 31.1 g/dL (32.0-36.0); Mean Corpuscular Hemoglobin 31.2 pg (27.0-31.0); Mean Corpuscular Volume 100.4 fl (78.0-98.0); Mean Platelet Volume 11.5 fL (7.4-10.4); Platelet Count 164 10x3/uL (130-400); RBC Distribution Width 13.2 % (11.5-14.5); Red Blood Cell (RBC) Count 4.97 mill/uL (4.20-5.40); White Blood Cell (WBC) Count 13.2 10x3/uL (4.8-10.8)
[2023-05-25 05:25] LABS: ALT (SGPT) 28 U/L (8-55); AST (SGOT) 26 U/L (5-34); Albumin 3.1 g/dL (3.4-4.8); Alkaline Phosphatase 60 U/L (40-110); BUN (Urea Nitrogen) 18 mg/dL (9.8-20.1); Bilirubin, Total 0.6 mg/dL (0.2-1.2); Calc. Creatinine Clearance 55 mL/min (70-130); Calcium 8.8 mg/dL (7.8-10.44); Estimated GFR 91; Globulin 2.8 g/dL (2.4-3.5); Glucose 104 mg/dL (83-110); Protein, Total 5.9 g/dL (5.8-8.1)
[2023-05-25 05:34] LABS: Anion Gap 15 mmol/L (10-20); Carbon Dioxide 35 mmol/L (23-31); Chloride 104 mmol/L (98-107); Potassium 3.4 mmol/L (3.5-5.1)
[2023-05-25 05:38] LABS: Sodium 150 mmol/L (136-145)
[2023-05-25] MEDS: Mometasone 200 MCG/Formoterol 5 MCG 120 PUFF INHALER INH SCH ×2 (07:11→19:21)
[2023-05-25] MEDS: Ipratropium/Albuterol 3 ML NEB NEB SCH ×3 (07:13→19:22)
[2023-05-25] MEDS: Amlodipine 10 MG TAB PO SCH (08:21)
[2023-05-25] MEDS: Floranex 1 GM Packet PO SCH (08:21)
[2023-05-25] MEDS: Senokot S 8.6-50 MG TAB PO SCH ×2 (08:22→19:47)
[2023-05-25] MEDS: Aspirin 81 mg Enteric Coated Tablet PO SCH (08:22)
[2023-05-25] MEDS: Potassium Chloride 20 MEQ in Premix 1 BAG IVPB SCH ×2 (08:59→10:59)
[2023-05-25] MEDS: Dextrose 5% in Water 1,000 ML IV SCH (09:39)
[2023-05-25 17:09] LABS: Potassium 5.3 mmol/L (3.5-5.1)
[2023-05-25] MEDS: Famotidine/PF 20 mg/2ml Vial SLOW IVP SCH (19:46)
[2023-05-25] MEDS: Atorvastatin Calcium 40 MG TAB PO SCH (19:47)
[2023-05-25] MEDS: Enoxaparin 30 MG (0.3 mL) SYRINGE SC SCH (19:47)
[2023-05-26] MEDS: Dextrose 5% in Water 1,000 ML IV SCH ×2 (02:13→18:12)
[2023-05-26] MEDS: Meropenem 1 GM in Sodium Chloride 0.9% 100 ML IVPB SCH ×3 (04:01→20:45)
[2023-05-26] MEDS: Mometasone 200 MCG/Formoterol 5 MCG 120 PUFF INHALER INH SCH ×2 (07:34→19:23)
[2023-05-26] MEDS: Ipratropium/Albuterol 3 ML NEB NEB SCH ×3 (07:34→19:23)
[2023-05-26] MEDS: Floranex 1 GM Packet PO SCH (10:41)
[2023-05-26] MEDS: Senokot S 8.6-50 MG TAB PO SCH (10:42)
[2023-05-26] MEDS: Amlodipine 10 MG TAB PO SCH (10:42)
[2023-05-26] MEDS: Aspirin 81 mg Enteric Coated Tablet PO SCH (10:42)
[2023-05-26 13:45] LABS: ALT (SGPT) 21 U/L (8-55); AST (SGOT) 25 U/L (5-34); Albumin 2.7 g/dL (3.4-4.8); Alkaline Phosphatase 56 U/L (40-110); BUN (Urea Nitrogen) 13 mg/dL (9.8-20.1); Bilirubin, Total 0.5 mg/dL (0.2-1.2); Calc. Creatinine Clearance 64 mL/min (70-130); Calcium 8.1 mg/dL (7.8-10.44); Estimated GFR 94; Globulin 2.7 g/dL (2.4-3.5); Glucose 153 mg/dL (83-110); Protein, Total 5.4 g/dL (5.8-8.1)
[2023-05-26 13:55] LABS: Anion Gap 14 mmol/L (10-20); Carbon Dioxide 36 mmol/L (23-31); Chloride 96 mmol/L (98-107); Sodium 142 mmol/L (136-145)
[2023-05-26 14:14] LABS: #Eosinphils 0.1 thou/uL (0.0-0.7); #Monocytes 0.9 thou/uL (0.11-0.59); #Neutrophils 10.7 thou/uL (1.40-6.50); %Basophils 0.2 % (0.0-1.0); %Lymphocytes 6.2 % (21.0-51.0); %Monocytes 7.3 % (0.0-10.0); %Neutrophils 84.4 % (42.0-75.0); Hemoglobin 15.4 g/dL (12.0-16.0); Mean Corpuscular HGB CONC 32.1 g/dL (32.0-36.0); Mean Corpuscular Hemoglobin 31.4 pg (27.0-31.0); Mean Corpuscular Volume 97.8 fl (78.0-98.0); Mean Platelet Volume 12.4 fL (7.4-10.4); Platelet Count 96 10x3/uL (130-400); RBC Distribution Width 12.5 % (11.5-14.5); Red Blood Cell (RBC) Count 4.91 mill/uL (4.20-5.40); White Blood Cell (WBC) Count 12.7 10x3/uL (4.8-10.8)
[2023-05-27] MEDS: Atorvastatin Calcium 40 MG TAB PO SCH ×2 (00:22→21:34)
[2023-05-27] MEDS: Senokot S 8.6-50 MG TAB PO SCH ×3 (00:23→21:34)
[2023-05-27] MEDS: Enoxaparin 30 MG (0.3 mL) SYRINGE SC SCH ×2 (00:38→21:34)
[2023-05-27] MEDS: Famotidine/PF 20 mg/2ml Vial SLOW IVP SCH ×2 (00:39→21:34)
[2023-05-27] MEDS: Albuterol 2.5 MG (3 mL) NEB NEB PRN (01:49)
[2023-05-27] MEDS ORDERED: Furosemide 40 MG (4 mL) VIAL SLOW IVP SCH (02:45)
[2023-05-27 04:22] LABS: #Eosinphils 0.1 thou/uL (0.0-0.7); #Monocytes 0.7 thou/uL (0.11-0.59); #Neutrophils 13.9 thou/uL (1.40-6.50); %Basophils 0.1 % (0.0-1.0); %Eosinophils 0.6 % (0.0-10.0); %Lymphocytes 3.7 % (21.0-51.0); %Monocytes 4.4 % (0.0-10.0); %Neutrophils 90.5 % (42.0-75.0); Hematocrit 50.8 % (36.0-47.0); Hemoglobin 16.2 g/dL (12.0-16.0); Mean Corpuscular HGB CONC 31.9 g/dL (32.0-36.0); Mean Corpuscular Hemoglobin 31.3 pg (27.0-31.0); Mean Corpuscular Volume 98.3 fl (78.0-98.0); Mean Platelet Volume 11.7 fL (7.4-10.4); Platelet Count 156 10x3/uL (130-400); RBC Distribution Width 12.3 % (11.5-14.5); Red Blood Cell (RBC) Count 5.17 mill/uL (4.20-5.40); White Blood Cell (WBC) Count 15.4 10x3/uL (4.8-10.8)
[2023-05-27] MEDS: Meropenem 1 GM in Sodium Chloride 0.9% 100 ML IVPB SCH ×3 (04:27→21:33)
[2023-05-27] MEDS: Dextrose 5% in Water 1,000 ML IV SCH ×3 (04:27→17:43)
[2023-05-27 04:47] LABS: ALT (SGPT) 26 U/L (8-55); AST (SGOT) 26 U/L (5-34); Alkaline Phosphatase 62 U/L (40-110); BUN (Urea Nitrogen) 11 mg/dL (9.8-20.1); Bilirubin, Total 0.7 mg/dL (0.2-1.2); Calc. Creatinine Clearance 61 mL/min (70-130); Calcium 8.4 mg/dL (7.8-10.44); Estimated GFR 93; Globulin 3.4 g/dL (2.4-3.5); Glucose 153 mg/dL (83-110); Protein, Total 6.4 g/dL (5.8-8.1)
[2023-05-27 04:56] LABS: Anion Gap 17 mmol/L (10-20); Carbon Dioxide 33 mmol/L (23-31); Chloride 92 mmol/L (98-107); Potassium 3.9 mmol/L (3.5-5.1); Sodium 138 mmol/L (136-145)
[2023-05-27] MEDS: Mometasone 200 MCG/Formoterol 5 MCG 120 PUFF INHALER INH SCH ×2 (07:23→18:35)
[2023-05-27] MEDS: Ipratropium/Albuterol 3 ML NEB NEB SCH ×3 (07:23→18:34)
[2023-05-27] MEDS: Amlodipine 10 MG TAB PO SCH (09:52)
[2023-05-27] MEDS: Aspirin 81 mg Enteric Coated Tablet PO SCH (09:52)
[2023-05-27] MEDS: Floranex 1 GM Packet PO SCH (09:54)
[2023-05-28] MEDS: Meropenem 1 GM in Sodium Chloride 0.9% 100 ML IVPB SCH ×3 (04:35→20:38)
[2023-05-28 05:43] LABS: #Eosinphils 0.2 thou/uL (0.0-0.7); #Monocytes 1.1 thou/uL (0.11-0.59); #Neutrophils 16.1 thou/uL (1.40-6.50); %Basophils 0.1 % (0.0-1.0); %Eosinophils 1.1 % (0.0-10.0); %Monocytes 5.9 % (0.0-10.0); %Neutrophils 88.1 % (42.0-75.0); Hematocrit 47.8 % (36.0-47.0); Hemoglobin 15.2 g/dL (12.0-16.0); Mean Corpuscular HGB CONC 31.8 g/dL (32.0-36.0); Mean Corpuscular Hemoglobin 31.3 pg (27.0-31.0); Mean Corpuscular Volume 98.4 fl (78.0-98.0); Mean Platelet Volume 11.8 fL (7.4-10.4); Platelet Count 182 10x3/uL (130-400); RBC Distribution Width 12.6 % (11.5-14.5); Red Blood Cell (RBC) Count 4.86 mill/uL (4.20-5.40); White Blood Cell (WBC) Count 18.3 10x3/uL (4.8-10.8)
[2023-05-28 06:05] LABS: BUN (Urea Nitrogen) 15 mg/dL (9.8-20.1); Calc. Creatinine Clearance 60 mL/min (70-130); Calcium 8.7 mg/dL (7.8-10.44); Estimated GFR 93; Glucose 165 mg/dL (83-110)
[2023-05-28 06:14] LABS: Anion Gap 16 mmol/L (10-20); Carbon Dioxide 39 mmol/L (23-31); Chloride 86 mmol/L (98-107); Potassium 3.6 mmol/L (3.5-5.1); Sodium 137 mmol/L (136-145)
[2023-05-28] MEDS: Mometasone 200 MCG/Formoterol 5 MCG 120 PUFF INHALER INH SCH ×3 (06:18→18:31)
[2023-05-28] MEDS: Ipratropium/Albuterol 3 ML NEB NEB SCH ×3 (06:58→18:30)
[2023-05-28] MEDS: Senokot S 8.6-50 MG TAB PO SCH ×2 (08:38→20:37)
[2023-05-28] MEDS: Floranex 1 GM Packet PO SCH (08:38)
[2023-05-28] MEDS: Aspirin 81 mg Enteric Coated Tablet PO SCH (09:33)
[2023-05-28] MEDS: Amlodipine 10 MG TAB PO SCH (09:33)
[2023-05-28] MEDS: Famotidine/PF 20 mg/2ml Vial SLOW IVP SCH ×2 (09:33→20:36)
[2023-05-28] MEDS: Dextrose 5% in Water 1,000 ML IV SCH (12:27)
[2023-05-28] MEDS: Atorvastatin Calcium 40 MG TAB PO SCH (20:36)
[2023-05-28] MEDS: Enoxaparin 30 MG (0.3 mL) SYRINGE SC SCH (20:37)
[2023-05-28] MEDS: D5 1/2 NS w/10 mEq KCl 1,000 ML/1,000 ML BAG IV SCH (20:37)
[2023-05-29] MEDS: Meropenem 1 GM in Sodium Chloride 0.9% 100 ML IVPB SCH ×3 (04:46→20:12)
[2023-05-29] MEDS: Mometasone 200 MCG/Formoterol 5 MCG 120 PUFF INHALER INH SCH ×2 (07:13→19:09)
[2023-05-29] MEDS: Ipratropium/Albuterol 3 ML NEB NEB SCH ×3 (07:14→19:09)
[2023-05-29] MEDS: Senokot S 8.6-50 MG TAB PO SCH ×2 (08:58→20:12)
[2023-05-29] MEDS: Floranex 1 GM Packet PO SCH (09:00)
[2023-05-29] MEDS: Aspirin 81 mg Enteric Coated Tablet PO SCH (09:05)
[2023-05-29] MEDS: Amlodipine 10 MG TAB PO SCH (09:05)
[2023-05-29] MEDS: Famotidine/PF 20 mg/2ml Vial SLOW IVP SCH ×2 (09:05→20:11)
[2023-05-29] MEDS ORDERED: Glucagon 1 MG/ML KIT IM PRN (13:14)
[2023-05-29] MEDS ORDERED: HumaLOG 300 UNITS/3 ML VIAL SC PRN (13:14)
[2023-05-29] MEDS ORDERED: Dextrose 50% Abboject 50 ML SYRINGE SLOW IVP PRN (13:14)
[2023-05-29] MEDS ORDERED: Dextrose 5% in Water 1,000 ML IV PRN (13:14)
[2023-05-29] MEDS: D5 1/2 NS w/10 mEq KCl 1,000 ML/1,000 ML BAG IV SCH (13:36)
[2023-05-29] MEDS: Enoxaparin 30 MG (0.3 mL) SYRINGE SC SCH (20:11)
[2023-05-29] MEDS: Atorvastatin Calcium 40 MG TAB PO SCH (20:11)
[2023-05-30] MEDS: Meropenem 1 GM in Sodium Chloride 0.9% 100 ML IVPB SCH ×2 (04:15→12:31)
[2023-05-30 05:10] LABS: #Basophils 0.1 thou/uL (0.0-0.2); #Eosinphils 0.2 thou/uL (0.0-0.7); #Monocytes 1.4 thou/uL (0.11-0.59); #Neutrophils 19.4 thou/uL (1.40-6.50); %Basophils 0.3 % (0.0-1.0); %Lymphocytes 2.4 % (21.0-51.0); %Monocytes 6.3 % (0.0-10.0); %Neutrophils 89.2 % (42.0-75.0); Hematocrit 46.4 % (36.0-47.0); Hemoglobin 14.3 g/dL (12.0-16.0); Mean Corpuscular HGB CONC 30.8 g/dL (32.0-36.0); Mean Corpuscular Hemoglobin 30.6 pg (27.0-31.0); Mean Corpuscular Volume 99.4 fl (78.0-98.0); Mean Platelet Volume 11.6 fL (7.4-10.4); Platelet Count 211 10x3/uL (130-400); RBC Distribution Width 12.4 % (11.5-14.5); Red Blood Cell (RBC) Count 4.67 mill/uL (4.20-5.40); White Blood Cell (WBC) Count 21.8 10x3/uL (4.8-10.8)
[2023-05-30 06:03] LABS: ALT (SGPT) 19 U/L (8-55); AST (SGOT) 19 U/L (5-34); Albumin 2.6 g/dL (3.4-4.8); Alkaline Phosphatase 69 U/L (40-110); Anion Gap 10 mmol/L (10-20); BUN (Urea Nitrogen) 20 mg/dL (9.8-20.1); Bilirubin, Total 0.4 mg/dL (0.2-1.2); Calc. Creatinine Clearance 64 mL/min (70-130); Calcium 8.5 mg/dL (7.8-10.44); Carbon Dioxide 37 mmol/L (23-31); Chloride 91 mmol/L (98-107); Estimated GFR 94; Globulin 3.2 g/dL (2.4-3.5); Glucose 183 mg/dL (83-110); Potassium 4.8 mmol/L (3.5-5.1); Protein, Total 5.8 g/dL (5.8-8.1); Sodium 133 mmol/L (136-145)
[2023-05-30] MEDS: Ipratropium/Albuterol 3 ML NEB NEB SCH ×2 (06:50→13:43)
[2023-05-30] MEDS: Mometasone 200 MCG/Formoterol 5 MCG 120 PUFF INHALER INH SCH (06:50)
[2023-05-30] MEDS: Aspirin 81 mg Enteric Coated Tablet PO SCH (10:27)
[2023-05-30] MEDS: Famotidine/PF 20 mg/2ml Vial SLOW IVP SCH (10:28)
[2023-05-30] MEDS: Amlodipine 10 MG TAB PO SCH (10:28)
[2023-05-30] MEDS: Senokot S 8.6-50 MG TAB PO SCH (10:28)
[2023-05-30] MEDS: Floranex 1 GM Packet PO SCH (10:28)
[2023-05-30] MEDS ORDERED: Furosemide 40 MG (4 mL) VIAL SLOW IVP SCH (17:00)
[2023-05-30 17:44] VITALS: BP 151/71; TEMP 98.7
== END 2023-05-30 17:34 | disposition hospice, inpatient (51) | DRG 871 ==
LOC: ERS 06:03 → ERHOLD 10:41 → IMCU/EMU 18:32 → SURG A 05-23 15:33
PROVIDERS: ADMIT Internal Medicine; ATTEND Emergency Medicine
PROC: 4A033R1 Measurement of Arterial Saturation, Peripheral, Percutaneous Approach (ICD-10-PCS; principal; 2023-05-19)
PROC: 3E03329 Introduction of Other Anti-infective into Peripheral Vein, Percutaneous Approach (ICD-10-PCS; 2023-05-19)
PROC: 5A09457 Assistance with Respiratory Ventilation, 24-96 Consecutive Hours, Continuous Positive Airway Pressure (ICD-10-PCS; 2023-05-20)
PROC: 5A0945A Assistance with Respiratory Ventilation, 24-96 Consecutive Hours, High Flow/Velocity Cannula (ICD-10-PCS; 2023-05-20)
DX: A41.9 Sepsis, unspecified organism (principal); E43 Unspecified severe protein-calorie malnutrition; J69.0 Pneumonitis due to inhalation of food and vomit; J96.21 Acute and chronic respiratory failure with hypoxia; J10.00 Influenza due to other identified influenza virus with unspecified type of pneumonia; J18.9 Pneumonia, unspecified organism; Z66 Do not resuscitate; G93.41 Metabolic encephalopathy; J44.1 Chronic obstructive pulmonary disease with (acute) exacerbation; N39.0 Urinary tract infection, site not specified; Z68.1 Body mass index [BMI] 19.9 or less, adult; R64 Cachexia; Z16.23 Resistance to quinolones and fluoroquinolones; E87.1 Hypo-osmolality and hyponatremia; Z51.5 Encounter for palliative care; G47.33 Obstructive sleep apnea (adult) (pediatric); E86.0 Dehydration; I10 Essential (primary) hypertension; B96.20 Unspecified Escherichia coli [E. coli] as the cause of diseases classified elsewhere; E78.5 Hyperlipidemia, unspecified; I25.10 Atherosclerotic heart disease of native coronary artery without angina pectoris; Z88.0 Allergy status to penicillin; Z88.8 Allergy status to other drugs, medicaments and biological substances; Z79.82 Long term (current) use of aspirin; I25.2 Old myocardial infarction; Z79.899 Other long term (current) drug therapy; Z98.890 Other specified postprocedural states; Z90.49 Acquired absence of other specified parts of digestive tract; Z90.710 Acquired absence of both cervix and uterus; Z87.891 Personal history of nicotine dependence; Z82.49 Family history of ischemic heart disease and other diseases of the circulatory system; Z83.3 Family history of diabetes mellitus; Z95.818 Presence of other cardiac implants and grafts; Z11.52 Encounter for screening for COVID-19; E87.5 Hyperkalemia; R53.81 Other malaise; F41.9 Anxiety disorder, unspecified; R13.12 Dysphagia, oropharyngeal phase
CPT/HCPCS: 36415; 36416; 51701; 71045; 71275; 74018; 74230; 80048; 80053; 80306; 80307; 81001; 82805; 83605; 83690; 83735; 83880; 84145; 84443; 84484; 85025; 85379; 87040; 87077; 87086; 87186; 87449; 87899; 93005; 93010; 94640; 94660; 94664; 96365; 96367; 96375; J0456; J0696; J1200; J1650; J1815; J1940; J2060; J2185; J2765; J2920; J2930; J3010; J3475; J3480; J3490; J7050; J7070; J7611; J7620; Q0162; Q9967; S0028

== ENCOUNTER 2023-05-30 17:40 | Inpatient (IN) | payer OTHER ==
[2023-05-30] MEDS ORDERED: Hyoscyamine SL 0.125 MG TAB SL PRN (17:58)
[2023-05-30] MEDS ORDERED: Lactulose 20 GM (30 mL) UDCUP PO PRN (17:59)
[2023-05-30 18:05] VITALS: BMI 18.7
[2023-05-30] MEDS: Morphine 2 MG/ML VIAL SLOW IVP PRN (18:20)
[2023-05-30] MEDS: Scopolamine 1 mg/72 hour Patch TOP SCH (18:24)
[2023-05-31] MEDS: Lorazepam 2 MG/ML VIAL SLOW IVP PRN ×3 (02:42→21:48)
[2023-06-01] MEDS: Lorazepam 2 MG/ML VIAL SLOW IVP PRN ×5 (05:45→23:16)
[2023-06-01] MEDS: Morphine 2 MG/ML VIAL SLOW IVP PRN ×3 (14:48→23:16)
[2023-06-02] MEDS: Morphine 2 MG/ML VIAL SLOW IVP PRN ×3 (06:30→23:27)
[2023-06-02] MEDS: Lorazepam 2 MG/ML VIAL SLOW IVP PRN ×3 (06:30→23:27)
[2023-06-02] MEDS: Scopolamine 1 mg/72 hour Patch TOP SCH (18:17)
[2023-06-03] MEDS: Lorazepam 2 MG/ML VIAL SLOW IVP PRN ×4 (05:57→17:00)
[2023-06-03] MEDS: Morphine 2 MG/ML VIAL SLOW IVP PRN ×4 (05:58→17:00)
[2023-06-04] MEDS: Morphine 2 MG/ML VIAL SLOW IVP PRN ×5 (09:34→19:04)
[2023-06-04] MEDS: Lorazepam 2 MG/ML VIAL SLOW IVP PRN ×5 (09:34→19:03)
[2023-06-05] MEDS: Morphine 2 MG/ML VIAL SLOW IVP PRN ×6 (00:53→20:07)
[2023-06-05] MEDS: Lorazepam 2 MG/ML VIAL SLOW IVP PRN ×5 (00:55→15:25)
[2023-06-05] MEDS: Scopolamine 1 mg/72 hour Patch TOP SCH (17:54)
[2023-06-05 20:42] VITALS: BP 113/51; TEMP 96.5
== END 2023-06-05 20:40 | disposition hospice, home (50) | DRG 951 ==
LOC: SURG A 17:40
PROVIDERS: ADMIT Family Medicine; ATTEND Family Medicine
DX: Z51.5 Encounter for palliative care (principal); J96.01 Acute respiratory failure with hypoxia; J10.08 Influenza due to other identified influenza virus with other specified pneumonia; J69.0 Pneumonitis due to inhalation of food and vomit; Z66 Do not resuscitate; G93.41 Metabolic encephalopathy; J44.1 Chronic obstructive pulmonary disease with (acute) exacerbation; E44.0 Moderate protein-calorie malnutrition; Z68.1 Body mass index [BMI] 19.9 or less, adult; E86.0 Dehydration; I10 Essential (primary) hypertension; E78.5 Hyperlipidemia, unspecified; R13.10 Dysphagia, unspecified; I25.10 Atherosclerotic heart disease of native coronary artery without angina pectoris; Z88.0 Allergy status to penicillin; Z88.8 Allergy status to other drugs, medicaments and biological substances; Z79.82 Long term (current) use of aspirin; Z79.899 Other long term (current) drug therapy; Z90.49 Acquired absence of other specified parts of digestive tract; Z90.710 Acquired absence of both cervix and uterus; Z98.890 Other specified postprocedural states; Z87.891 Personal history of nicotine dependence; Z82.49 Family history of ischemic heart disease and other diseases of the circulatory system; Z83.3 Family history of diabetes mellitus; Z11.52 Encounter for screening for COVID-19; Z95.818 Presence of other cardiac implants and grafts
CPT/HCPCS: J2060; J2272